=== PATIENT | male | born 1995 | race Caucasian/White ===

== ENCOUNTER 2017-05-25 17:32 | Emergency (ER) | payer MEDICAID, OTHER ==
[~2017-05-25] VITALS: Ht 190.5 cm; Wt 113.0 kg
[~2017-05-25 17:32] MED LIST: LISI-357 PO; LISI-360 PO
[2017-05-25 17:33] VITALS: BP 149/78; PULSE 77; RESP 16; TEMP 98; O2SAT 98
--- NOTE | 2017-05-25 17:56 | PD ---
Physical Exam Date Seen by Provider: May 25, 2017 Time Seen by Provider: 17:55 Narrative 22 yo male here for neck pain. Pain since heavy lifting. No falls. No other medical issues. Vitals stable in triage. Awaiting bed placement. Data Data Last Documented VS Vital Signs Date Time Temp Pulse Resp B/P (MAP) Pulse Ox O2 Delivery O2 Flow Rate FiO2 05/25/17 17:33 98.0 77 16 149/78 (101) 98 MDM Medical Record Reviewed: Yes Supervised Visit with HUSAM: Jacinto Castle May 25, 2017 17:56
== END 2017-05-25 21:32 | disposition left against medical advice (07) ==
LOC: NED 17:32
DX: M54.2 Cervicalgia (principal); Z53.21 Procedure and treatment not carried out due to patient leaving prior to being seen by health care provider
CPT/HCPCS: 99281